=== PATIENT | female | born 1980 | race African-American/Black ===

== ENCOUNTER 2018-06-04 12:34 | Emergency (ER) | payer OTHER ==
[2018-06-04 14:03] LABS: ADD UMIC NO; UR ASCORBIC ACID NEGATIVE (NEGATIVE); UR BILIRUBIN (Dip) NEGATIVE (NEGATIVE); UR BLOOD (Dip) NEGATIVE (NEGATIVE); UR CLARITY SLIGHTLY CLOUDY (CLEAR); UR COLOR YELLOW (YELLOW); UR GLUCOSE (Dip) NEGATIVE (NEGATIVE); UR KETONES (Dip) NEGATIVE (NEGATIVE); UR LEUKOCYTE ESTERASE (Dip) NEGATIVE Leu/ul (NEGATIVE); UR NITRITE (Dip) NEGATIVE (NEGATIVE); UR RBC 6 /HPF (0-5); UR SPECIFIC GRAVITY (Dip) 1.018 (1.003-1.030); UR TOTAL PROTEIN (Dip) NEGATIVE (NEGATIVE); UR UROBILINOGEN (Dip) NEGATIVE (NEGATIVE); UR WBC 1 /HPF (0-5)
[2018-06-04] MEDS: AZITHROMYCIN 250 MG TAB PO (14:05)
[2018-06-04] MEDS: CEFTRIAXONE 250 MG INJ IM (14:05)
[2018-06-04] MEDS: LIDOCAINE 1% (MDV) 10 ML INJ INJ (14:06)
== END 2018-06-04 16:56 | disposition home or self-care (01) ==
LOC: FTE 12:34
DX: N89.8 Other specified noninflammatory disorders of vagina (principal); I10 Essential (primary) hypertension; J45.909 Unspecified asthma, uncomplicated; Z00.00 Encounter for general adult medical examination without abnormal findings; Z79.82 Long term (current) use of aspirin
CPT/HCPCS: 81001; 81003; 87210; 87591; 96372; 99284-25